=== PATIENT | female | born 1980 | race Caucasian/White ===

== ENCOUNTER 2017-01-10 05:55 | Inpatient (IN) ==
--- NOTE | 2017-01-10 06:51 | PROVIDER DOCUMENTATION ---
HPI-Abdominal Pain/GI Problem - General Chief Complaint: Abdominal Pain Stated Complaint: POSS KIDNEY STONES Time Seen by Provider: 01/10/17 06:44 Source: patient, family Allergies/Adverse Reactions: Patient Allergies Allergy/AdvReac Type Severity Reaction Status Date / Time No Known Allergies Allergy Verified 01/10/17 06:33 Home Medications: Home Medication List Medication Instructions Recorded Confirmed Last Taken Type NK [No Home Medications] 01/10/17 01/10/17 Unknown History - History of Present Illness-ABD Nature of Presenting Problems: Severe sharp R flan, RUQ pain, constant since late last night, assoc with N/V, no change in BM. Nothing makes worse, helped by walking. No dysuria, no hematuria. Has hasd subjective fever intermittantly for sev days, thinks is due to wisdom tooth coming in. Abdominal Pain Onset Location: reports: RUQ, flank Pain Radiation: reports: other (flank to RUQ) Quality of Pain: reports: sharp Severity in ED: reports: severe Onset/Duration: reports: last night Timing: reports: still present, constant Activities at Onset: reports: none Modifying Factors: improves with: other (eaded by walking about) Associated Symptoms: reports: fever/chills (see HPI), nausea, vomiting. denies : diarrhea Similar Symptoms Previously?: No Recently seen or treated by another doctor?: No Review of Systems - Adult - REVIEW OF SYSTEMS - ADULT Constitutional: reports: see HPI Eyes: reports: no symptoms reported Ears, Nose, Mouth & Throat: reports: other (occ R ear pain) Cardiovascular: reports: no symptoms reported Respiratory: reports: no symptoms reported Gastrointestinal: reports: see HPI, nausea, vomiting Genitourinary: reports: no symptoms reported Musculoskeletal: reports: no symptoms reported Integumentary: reports: no symptoms reported Neurological: reports: no symptoms reported Psychiatric: reports: no symptoms reported Endocrine: reports: no symptoms reported Hematologic/Lymphatic: reports: no symptoms reported Allergic/Immunologic: reports: no symptoms reported Past History - Adult - PAST MEDICAL HISTORY-ADULT Review of Records: reports: Medications Reviewed Major Childhood Illnesses: reports: denies history Cardiovascular: reports: denies history Respiratory: reports: denies history Gastrointestinal: reports: denies history Obstetrical/Gynecological: reports: denies history Genitourinary: reports: denies history Musculoskeletal: reports: denies history Neurological: reports: denies history Endocrine/Immune: reports: denies history Other Conditions: reports: denies history - PRIOR SURGERIES/PROCEDURES Surgical/Procedure History: reports: - IMMUNIZATION STATUS Childhood Immunizations: UTD, See Nurse Assessment Flu Vaccine: See Nurse Assessment - FAMILY HISTORY Family History: reviewed, not pertinent - SOCIAL HISTORY Smoking: denies Physical Exam-General - PHYSICAL EXAM-ADULT Initial Vital Signs Reviewed: Yes - CONSTITUTIONAL General Appearance: appears well, alert, mild distress, other (appears older than stated age) - EYES Eyes: PERRL/EOMI, pink conjunctivae - HEAD, EARS, NOSE, MOUTH & THROAT HENMT: normocephalic/atraumatic, moist mucous membranes, normal ENT inspection, pharynx normal - NECK Neck: full range of motion, supple - RESPIRATORY Respiratory: lungs clear, normal breath sounds, no pleuratic chest pain, no respiratory distress, no accessory muscle use - CARDIOVASCULAR Cardiovascular: regular rate, rhythm, no gallop, no murmur - GASTROINTESTINAL (ABDOMEN) Abdominal Exam: normal bowel sounds, soft, tenderness (diffuse, no localization) - MUSCULOSKELETAL Back Exam: CVA tenderness (Bilat) Extremity: normal range of motion, non-tender - SKIN Integumentary: normal color, normal turgor, warm/dry - NEUROLOGIC Neurologic: basketball commentator II-XII nml as tested, grossly normal, no motor/sensory deficits - PSYCHIATRIC Psych/Mental Status: normal mood/affect, normal thought content, normal thought process, oriented x 3, other (speech is rapid) Progress - PLAN OF CARE/RESULTS Progress/Plan/Lab Results: Vital Signs - 8 hr 01/10/17 05:57 Temperature 97.3 F L Pulse Rate 82 Respiratory Rate 19 Blood Pressure 121/76 O2 Sat by Pulse Oximetry 99 Orders Category Date Time Status CBC WITH DIFF [HEME] Stat Lab 01/10/17 06:45 Ordered CMP [COMPREHENSIVE METABOLIC PANEL] [CHEM] Stat Lab 01/10/17 06:45 Uncollected TEST-URINE [PREG] Stat Lab 01/10/17 06:46 Uncollected URINALYSIS W/POSS RFLX CULT-1 [URINALYSIS] Stat Lab 01/10/17 06:08 Uncollected URINE DRUG SCREEN Stat Lab 01/10/17 06:45 Uncollected Result Diagrams: 01/10/17 06:53 01/10/17 06:53 - CT/MRI 1 CT Study: Renal Stone Impression: Abnormal CT Results: 6 mm distal ureterolithiasis, also hydronephrosis, R nephrolithiasis - CONSULTS/PCP/HOSPITALIST Notification #1 *Consult/PCP/Hospitalist*: Nigel Time Discussed: Consult Disposition: Admit #2 Consult: Carlos Enrique Time Discussed: Consult Disposition: other (will see as consult) Departure - Departure Date of Disposition Decision: 01/10/17 Time of Disposition Decision: : DIAGNOSIS: Ureterolithiasis Urinary tract infection Qualifiers: Urinary tract infection type: acute cystitis Hematuria presence: with hematuria Qualified Code(s): N30.01 - Acute cystitis with hematuria Disposition: HOME 01 Certified Medical Emergency: Emergent Condition: Fair Referrals and Follow-Ups: None,PCP [Primary Care Provider] - - Critical Care Note This patient required my direct & personal management of CC.: No Attestation - Physician/ MACKENZIE Attestation Patient care was provided by Advanced Practice Provider:: No The physician spent face to face time with patient:: Yes (was no MACKENZIE, only MD saw the patient) Advanced Practice Provider documentation review:: Supervising physician onsite and consulted in the evaluation and care of this patient. The physician did have a face to face encounter with the patient.
[2017-01-10 07:01] LABS: MANUAL DIFF NEEDED? NO
[2017-01-10 07:04] LABS: BASO% 0.2 % (0.0-0.8); EOS# 0.36 X1000 (0.0-0.7); EOS% 2.9 % (0.0-10.0); HEMATOCRIT 39.4 % (37.0-47.0); HEMOGLOBIN 12.8 g/dL (12.0-16.0); IMM GRAN# 0.02 X1000 (0.0-0.04); IMM GRAN% 0.2 % (0.0-0.5); LYMPH# 1.36 X1000 (1.2-3.4); MCH 27.8 PG (27-31); MCHC 32.5 g/dL (33-37); MCV 85.5 FL (81-99); MONO# 0.79 X1000 (0.11-0.59); MONO% 6.4 % (1.7-9.3); MPV 10.3 FL (7.4-10.4); NEUT% 79.3 % (42.2-75.2); PLT 232 X1000 (130-400); RBC 4.61 XMIL (4.2-5.4)
[2017-01-10 07:26] LABS: AGAP 11; ALBUMIN 4.5 g/dL (3.5-5.0); ALKALINE PHOSPHATASE 50 U/L (32-104); BUN 9 mg/dL (8-22); CALCIUM 9.1 mg/dL (8.8-10.2); CHLORIDE 102 mmol/L (98-107); COSMO 282; GOT 19 U/L (10-30); GPT 15 U/L (10-36); POTASSIUM 3.9 mmol/L (3.5-5.1); SODIUM 142 mmol/L (136-145); TCO2 29 mmol/L (25-35); TOTAL BILIRUBIN 0.34 mg/dL (0.20-1.00); TOTAL PROTEIN 7.2 g/dL (6.3-8.3)
[2017-01-10 08:02] LABS: URINE MICRO REVIEW NEEDED? NO; URINE SOURCE CATH
[2017-01-10 08:06] LABS: BILIRUBIN URINE NEGATIVE (NEGATIVE); BLOOD URINE LARGE (NEGATIVE); COLOR YELLOW; GLUCOSE URINE NEGATIVE (NEGATIVE); LEUKOCYTES URINE LARGE (NEGATIVE); NITRITE URINE POSITIVE (NEGATIVE); PH URINE 7.5; PROTEIN URINE 30 mg/dL (NEGATIVE); TURBIDITY URINE HAZY (CLEAR); UROBILINOGEN URINE NORMAL (NORMAL)
[2017-01-10 08:08] LABS: UR EPITHELIAL CELLS <10 /HPF (<10); URINE BACTERIA 4+ /HPF; URINE CULTURE NEEDED? YES; URINE RBC TNTC /HPF (<10); URINE WBC TNTC /HPF (<10)
[2017-01-10 08:24] LABS: UR AMPHETAMINES QUAL PRESUMPTIVE POSITIVE (NONE DETECT); UR BARBITUATES QUAL NONE DETECTED (NONE DETECT); UR BENZODIAZEPIN QUAL NONE DETECTED (NONE DETECT); UR CANNABINOIDS QUAL NONE DETECTED (NONE DETECT); UR COCAINE QUAL NONE DETECTED (NONE DETECT); UR METHADONE QUAL NONE DETECTED (NONE DETECT); UR OPIATES QUAL NONE DETECTED (NONE DETECT); UR OXYCODONE QUAL NONE DETECTED (NONE DETECT); UR PCP QUAL NONE DETECTED (NONE DETECT)
[2017-01-10] MEDS ORDERED: ZOFRAN IV ONE (08:41)
[2017-01-10] MEDS ORDERED: DILAUDID IV ONE (08:41)
[2017-01-10] MEDS ORDERED: TORADOL IV ONE (08:41)
--- NOTE | 2017-01-10 09:55 | Diag Imaging Result Doc PS360 ---
EXAM: RENAL STONE SEARCH HISTORY: A flank pain, abd pain TECHNIQUE: CT urogram without contrast with dose reduction (clarity.) COMMENT: The visualized portion of the chest is unremarkable. The left kidney is unremarkable. There is hydronephrosis on the right with multiple calyceal stones in the midpole the largest of which measuring almost 7 mm. There is an apparent stone in the distal right ureter at the level of sacroiliac joint measuring almost 6 mm in diameter. There is stool throughout the colon. The small bowel is not distended. There is no evidence of gallstones. There is no evidence of appendicitis. The urinary bladder is not distended. There are phleboliths in the lower pelvis. There is no evidence of acute bony abnormality. IMPRESSION: Right nephrolithiasis, hydronephrosis, and distal ureterolithiasis. Electronically signed by Toño Hamilton 01/10/2017 9:53 AM
[2017-01-10] MEDS ORDERED: ROCEPHIN 1 GM/NS 1 GM/50 ML IVPB IV ONE (10:09)
[2017-01-10] MEDS: NS 1,000 ML IV SCH ×2 (14:17→23:30)
--- NOTE | 2017-01-10 14:54 | HISTORY AND PHYSICAL ---
DATE OF ADMISSION: 01/10/2017 CHIEF COMPLAINT: Right flank pain. HISTORY OF PRESENT ILLNESS: Mrs Ramesh is a 36-year-old female, with no medical history, who presents to the hospital with acute onset of right-sided flank pain that began last night. She has also been having some dysuria, mild nausea, but no vomiting. The pain is described as a constant pressure and radiates to the front of her abdomen. She came to the ER and was noted to have a UTI. A subsequent CT of the pelvis revealed right nephrolithiasis with hydronephrosis and distal ureterolithiasis. She has been given antibiotics and fluids, and we are now going to admit her for further treatment and evaluation. PAST MEDICAL HISTORY: None. SURGICAL HISTORY: 1. x2. 2. Bilateral tubal ligation. SOCIAL HISTORY: Patient denies tobacco, alcohol, or drug use. She is unemployed. She is but . She has 2 children. FAMILY HISTORY: Noncontributory. REVIEW OF SYSTEMS: A 14-point review of systems obtained and found to be negative, with the exception of the HPI. HOME MEDICATIONS: None. ALLERGIES: None. PHYSICAL EXAMINATION: VITAL SIGNS: Blood pressure is 108/72, heart rate is 62, respiratory rate 16, O2 saturation 98% on room air, temperature is 97.3 degrees. GENERAL: This is a frail-, bordering on emaciated, appearing 36-year-old female, lying in the hospital bed in no acute distress. NEUROLOGIC: She is a bit jittery but, overall, she is oriented. Follows commands without focal deficits. HEENT: Head is atraumatic and normocephalic. Her pupils are equal, round, and reactive to light. Oral mucosa is moist. There is extremely poor dentition. Trachea is midline. No JVD. CHEST: Clear to auscultation bilaterally. CARDIOVASCULAR: Regular rate and rhythm. S1, S2 is noted. GASTROINTESTINAL: Right lower quadrant tenderness to palpation. Belly is soft and nondistended. Bowel sounds are hypoactive. EXTREMITIES: No edema, clubbing, or cyanosis. Pulses are palpable. DIAGNOSTIC DATA: Renal CT: Please see HPI. WBC 12.4 hemoglobin 12.8, hematocrit 39.4, platelet count 232,000. Chemistry is unremarkable. Urine shows large urinary tract infection. Toxicology is positive for amphetamines. ASSESSMENT AND PLAN: 1. Obstructive uropathy: Urology has been consulted. We will continue IV fluids and antibiotics. We will keep her n.p.o. and add p.r.n. pain medication. 2. Urinary tract infection: As above. 3. Positive amphetamine drug screen: The patient reports that she does not use any type of amphetamine product, but she does report "being around it". We discussed with her the importance of on any illicit drug use cessation. We will continue this on a daily basis. 4. Deep vein thrombosis prophylaxis with sequential compression devices. Further recommendations to follow. Dictated by KADI Deleon for Thuan Gunderson MD cc: KADI Deleon MD I have seen and examined patient and have discussed the above plan with the patient. Right Hydronephrosis-- urology consult, antibiotics and adequate hydration. rkq JARROD
[2017-01-10] MEDS: MORPHINE IV PRN ×2 (15:01→19:14)
--- NOTE | 2017-01-10 19:23 | CONSULTATION ---
DATE OF CONSULTATION: 01/10/2017 CONSULTING PHYSICIAN: Thuan Gunderson MD with Hospitalist Service. REASON FOR CONSULTATION: Right ureteral stone. HISTORY OF PRESENT ILLNESS: A 36-year-old female who denies a previous history of urolithiasis. She presents to the emergency room with significant right flank pain. She underwent imaging on 01/10/2017 which revealed urolithiasis with the largest right renal stone of 7 mm and a 6 mm right distal ureteral stone. She reports associated nausea. She denies gross hematuria, fevers or chills. She is currently comfortable with IV pain medications. PAST MEDICAL HISTORY: None. HOME MEDICATIONS: None. ALLERGIES: No known drug allergies. SURGICAL HISTORY: x2. Bilateral tubal ligation. FAMILY HISTORY: Negative for malignancies. SOCIAL HISTORY: She currently denies tobacco, alcohol or drug use. She reports "hard drug use" in the remote past which cause her dental condition. REVIEW OF SYSTEMS: Twelve point review of systems was reviewed and negative with the exception of the HPI. PHYSICAL EXAMINATION: Vital Signs: T 98.4, P 86, BP 129/74. General: No acute distress. HEENT: Normocephalic, atraumatic. Cardiovascular: Regular rhythm. Pulmonary: Bilateral breath sounds. Abdomen: Nontender, nondistended. Genitourinary: Bladder is nontender on palpation. Back: Mild CVA tenderness on the right side. Lymphatic: No generalized lymphadenopathy noted. Dermatologic: No obvious skin rashes. Neurologic: Alert on x3. Psychiatric: Appropriate mood and affect. PERTINENT LABORATORY DATA: White cell count of 12,000, hematocrit of 39, creatinine of 0.8. Urinalysis is positive for blood, nitrites and leukocytes as well as bacteria. A drug screen is positive for methamphetamines. PERTINENT IMAGES: CT abdomen and pelvis renal stone search on 01/10/2017 revealing a 6 mm right distal ureteral stone with hydroureteronephrosis. ASSESSMENT AND PLAN: A 36-year-old woman with right distal ureteral stone and flank pain. I have explained to her the options of medical expulsive therapy versus right ureteroscopy with laser lithotripsy and she wants to proceed with intervention. We discussed the risks of the procedure including, but not limited to, bleeding, infection, injury to the bladder, injury to the urethra, inability to remove the stone, need for additional interventions. She voiced understanding and wished to proceed. PLAN: 1. NPO after midnight. 2. To the Operating Room tomorrow morning for cystoscopy, right ureteroscopy, laser lithotripsy, stone basket extraction, placement of right ureteral stent. Thank you for the consultation. cc: Moses Monaco MD
[2017-01-11] MEDS: MORPHINE IV PRN (05:14)
[2017-01-11] MEDS: NS 1,000 ML IV SCH ×2 (05:18)
[2017-01-11 06:29] LABS: HEMATOCRIT 35.5 % (37.0-47.0); HEMOGLOBIN 11.2 g/dL (12.0-16.0); MCH 28.1 PG (27-31); MCHC 31.5 g/dL (33-37); MPV 10.4 FL (7.4-10.4); RBC 3.99 XMIL (4.2-5.4)
[2017-01-11 06:48] LABS: AGAP 8; BUN 11 mg/dL (8-22); CALCIUM 8.1 mg/dL (8.8-10.2); CHLORIDE 103 mmol/L (98-107); COSMO 271; POTASSIUM 3.9 mmol/L (3.5-5.1); SODIUM 136 mmol/L (136-145); TCO2 25 mmol/L (25-35)
[2017-01-11] MEDS ORDERED: XYLOCAINE-MPF 2% ONE (07:13)
[2017-01-11] MEDS ORDERED: DIPRIVAN 1% ONE (07:13)
[2017-01-11] MEDS ORDERED: ZOFRAN ONE (08:02)
[2017-01-11] MEDS ORDERED: DECADRON ONE (08:02)
[2017-01-11] MEDS ORDERED: TORADOL PO PRN (09:36)
[2017-01-11] MEDS ORDERED: NORCO-5 PO PRN (09:44)
[2017-01-11] MEDS ORDERED: ROCEPHIN 1 GM/NS 1 GM/50 ML IVPB IV SCH (11:00)
[2017-01-11 11:10] VITALS: BP 106/74
--- NOTE | 2017-01-11 12:22 | PROGRESS NOTE ---
DATE: 01/11/2017 Ms. Ramesh continues to have right-sided flank pain radiating to her abdomen. She desires intervention. OBJECTIVE: Vital Signs: T 98.1 degrees, P 82, BP 97/64. General: No acute distress. Abdomen: Nontender on the left, tender to palpation on the right. No peritoneal signs. No involuntary guarding. PERTINENT LABORATORY DATA: White cell count of 15,000, creatinine of 1. ASSESSMENT AND PLAN: 36-year-old female with a 6 mm right distal ureteral stone, hydronephrosis, flank pain. Continues to have intractable pain. We discussed cystoscopy with right ureteroscopy, laser lithotripsy, stone basket extraction, placement of ureteral stent with risks including, but not limited to, bleeding, infection, injury to the kidney, injury to the ureter, to the bladder or adjacent structures, inability to get the stone, delayed complications such as ureteral stricture, and need for additional interventions were explained. She voiced understanding and wants to proceed. PLAN: To the operating room this morning for cystoscopy, right ureteroscopy, laser lithotripsy, stone basket extraction, placement of ureteral stent. cc: Moses Monaco MD
--- NOTE | 2017-01-11 12:52 | OPERATIVE NOTE ---
DATE OF PROCEDURE: 01/11/2017 SURGEON: Dr. Moses Monaco. PREOPERATIVE DIAGNOSIS: Right distal ureteral stone, hydronephrosis, flank pain, nausea, vomiting. PROCEDURE: Cystoscopy, right ureteroscopy, laser lithotripsy, stone basket extraction, placement of 6-Uzbek, 20 cm right ureteral stent. INDICATIONS: A 36-year-old female with a history of urolithiasis who presented with severe right- sided flank pain and was found to have the aforementioned distal ureteral stone. She was admitted for pain control and hydration as well as treatment of presumed UTI. She desires intervention as she had not had improvement overnight. FINDINGS: Obstructing distal ureteral stone, no evidence of ureteral injury postprocedure, successful stent placement. DESCRIPTION OF PROCEDURE: After obtaining informed consent, patient was brought to the operative room. Perioperative antibiotics and laryngeal mask anesthesia were administered. She was placed in lithotomy position prepped and draped in sterile fashion. A 21-Uzbek rigid cystoscope was used to gain access to the bladder, which was then examined in systematic fashion. She had no evidence of mucosal lesions, excessive trabeculations, or diverticula noted. We turned attention to the right ureteral orifice which was cannulated with a PTFE wire. The wire was advanced to the level of the renal pelvis which was confirmed fluoroscopically. We then used a rigid ureteroscope, advanced alongside of the wire. The stone was visible in the distal ureter. It appeared to create mucosal edema around it. I was able to use 0 Nitinol basket to secure the stone. We then used holmium laser fiber 273 microns in size to break the stone up with holmium laser settings of 0.8 joules and 8 hertz. Once the stone was broken up into small fragments Nitinol basket was used to extract those. Repeat ureteroscopy revealed mucosal edema, but no evidence of ureteral injury and no sizable fragments left. We then placed ureteral stent in a standard fashion over the wire via the cystoscope with the proximal coil position confirmed fluoroscopically and distal coil directly visualized. The string was left attached to the stent. Her bladder was emptied. The cystoscope was removed. She was extubated and taken to PACU for further recovery. ESTIMATED BLOOD LOSS: None. COMPLICATIONS: None. DISPOSITION: To PACU back to the floor. I have discussed with Dr. Gunderson who is her hospitalist that from the urologic standpoint the patient was educated on the stent and stent removal preoperatively and her family was educated on stent removal postoperatively. I have instructed that it was safe to remove the stent by pulling the string on 01/14/2017 and if she was hesitant about doing so that she could have it done at our office. We discussed she would benefit from antibiotics and pain control which Dr. Gunderson would arrange. I asked her to come and see me in clinic in 4 weeks. I have also discussed with the family that she has quite large renal stones that may cause her trouble in the future. cc: Moses Monaco MD
--- NOTE | 2017-01-11 15:35 | DISCHARGE SUMMARY ---
ADMISSION DATE: 01/10/2017 DISCHARGE DATE: 01/11/2017 DISPOSITION: Home. FOLLOWUP: With Dr. Monaco. INVASIVE PROCEDURES: Invasive procedures done during this admission are cystoscopy with right ureteroscopy, laser lithotripsy, stone basket extraction, and placement of a right ureter stent was done today by Dr. Monaco. IMAGING STUDIES OF SIGNIFICANCE: A renal CT scan was done, which shows right nephrolithiasis, hydronephrosis, and distal ureterolithiasis. ADMISSION DIAGNOSES: 1. Obstructive uropathy. 2. Urine tract infection. 3. Positive amphetamine drug abuse. DISCHARGE DIAGNOSES: 1. Right hydronephrosis secondary to ureterolithiasis, status post urological intervention. 2. Recreational drug use. 3. Dehydration, improved. 4. Poor dentition. DISCHARGE MEDICATIONS: 1. Levofloxacin 250 p.o. daily. 2. Rapaflo 8 mg daily. 3. Ketorolac 10 mg q.6 hours p.r.n. PRESENTING COMPLAINT: Abdominal right flank pain. HISTORY OF PRESENTING COMPLAINT: Ms. Ramesh is a 37-year-old female with no significant medical history, who presented to the emergency department because of right flank pain. A CT scan of the abdomen showed ureterolithiasis, with hydronephrosis. Patient was admitted for medical care. HOSPITAL COURSE: The patient was admitted to the medical floor, was started on IV fluids and IV antibiotics. Urology was consulted. Pain was managed as well with medications. The patient was evaluated by Urology, and the decision was made to intervene today. Procedure was successfully done. Dr. Monaco actually called me after the procedure and said from a Urology standpoint, patient can be discharged. The patient is therefore going to be discharged to follow up with Dr. Monaco. Recommendations have already been given to him by Dr. Monaco to pull the stent on Friday, and follow up with him. All the discharge instructions have been discussed with the patient. We have consulted manager social media for medication assistance, since the patient does not seem to have any insurance. TIME SPENT: Time spent for discharge is 38 minutes. cc: Thuan Gunderson MD
[2017-01-12] MEDS ORDERED: LEVAQUIN PO SCH (09:00)
[2017-01-12] MEDS ORDERED: RAPAFLO PO SCH (09:00)
--- NOTE | 2017-01-13 07:21 | Diag Imaging Result Doc PS360 ---
FLUOROSCOPY CYSTO - 01/11/2017 INDICATION: RT STENT PLACEMENT TECHNIQUE: Fluoroscopy and multiple views of the abdomen. The exam was performed by the patient's urologist. Seven images were submitted. COMPARISON: CT abdomen pelvis 01/10/2017 FINDINGS: A right nephroureteral stent was placed in good position. There is severe constipation and severe hyperinflation of the large bowel Stable from prior. IMPRESSION: No complication. Electronically signed by Keaton Guy 01/13/2017 7:19 AM
== END 2017-01-11 11:25 | disposition home or self-care (01) ==
LOC: ED 05:55 → 4N 11:12
PROVIDERS: ATTEND Internal Medicine